=== PATIENT | male | born 1985 | race Caucasian/White ===

== ENCOUNTER 2020-06-29 17:09 | Emergency (ER) | payer BC ==
[~2020-06-29] VITALS: Ht 167.6 cm; Wt 60.0 kg
[2020-06-29] MEDS ORDERED: BACITRACIN ZINC OINT UDPKT TOP ONE ×2 (17:45→19:45)
[2020-06-29] MEDS ORDERED: ACETAMINOPHEN 325MG TABLET PO ONE (17:45)
[2020-06-29] MEDS ORDERED: LIDOCAINE HCL 1% 20ML VIAL (Pyxis) INJ INFIL ONE (18:30)
[2020-06-29] MEDS ORDERED: IBUP-2028 MT (19:38)
[2020-06-29] MEDS ORDERED: CEPH500T MT (19:38)
[2020-06-29 20:36] VITALS: BP 128/86
== END 2020-06-29 20:48 | disposition home or self-care (01) ==
LOC: ER 17:09
DX: S61.213A Laceration without foreign body of left middle finger without damage to nail, initial encounter (principal); W26.8XXA Contact with other sharp object(s), not elsewhere classified, initial encounter; Y93.89 Activity, other specified; Y92.89 Other specified places as the place of occurrence of the external cause
CPT/HCPCS: 12001; 73130; 99283; J3490